=== PATIENT | female | born 1985 | race Caucasian/White ===

== ENCOUNTER → 2024-01-11 12:17 | Outpatient (REF) | payer OTHER, SELFPAY | LOC: HWWDC 12:17 | PROVIDERS: ATTENDING PHYSICIAN Nurse Practitioner Adult Health; FAMILY PHYSICIAN Internal Medicine | DX: Z12.31 Encounter for screening mammogram for malignant neoplasm of breast (principal) | CPT/HCPCS: 77063; 77067 ==

== ENCOUNTER 2024-07-04 20:10 | Inpatient (IN) | payer OTHER, SELFPAY ==
[2024-07-04 16:37] VITALS: BP 158/100
--- NOTE | 2024-07-04 16:59 | ED.GENMED ---
History of Present Illness
General
Chief Complaint: Anal/Rectal Problem
Source: patient
Time Seen by Provider: 07/04/24 16:46
History of Present Illness
History of Present Illness:
39-year-old female presenting to the ER for evaluation of pain that started around the perianal/rectal area this past Tuesday, went to urgent care where she was diagnosed with sciatica, symptoms worsened over the weekend and went to primary care
provider today where she was diagnosed with a perianal/perirectal abscess and recommended to come to the ER for further evaluation. Patient did take some Motrin earlier this morning which gave her some relief but still noting about 8 or 9 out of 10
pain presently. Denies any fevers, chills, rigors. No other symptoms. Denies any history of similar location of abscess. No known history of diabetes.
Past History
Past History
ED Past Medical History: Hypothyroidism
ED Past Surgical History: Gynecological
Social History
Tobacco: Non-smoker
Alcohol: None
Drug: None
Personal: Single
Living: with family
Employment: Employed
Family History
Family History: Other (Noncontributory)
Review of Systems
Review of Systems
All Other Systems: ROS reviewed and negative except as documented in HPI and ROS
Phy Exam
Physical Exam
Physical Exam:
GENERAL: Alert , in no apparent distress but appears very uncomfortable
HEAD: Normocephalic atraumatic
EYE: conjunctiva clear
NECK: Supple, no significant adenopathy.
ENT: o/p clr, mmm.
CARDIAC: Regular rate and rhythm
LUNGS: Clear breath sounds bilaterally, no acute respiratory distress, no wheezes/rales/rhonchi
RECTAL EXAM: Chaperoned by technical agronomist Yeimi: Moderate to large sized perianal/perirectal abscess tracking down into the perineum with small purulent discharge noted closer to the perineum. Significant tenderness to palpation.
NEUROLOGICAL: Alert and oriented
SKIN: Warm and dry, skin intact.
MUSCULOSKELETAL: well perfused.
PSYCH: Normal and appropriate interaction.
Scores
Heart Failure Risk
Heart Failure Risk Score: Not Applicable
Heart Score for Chest Pain Patients
STEMI patient?: Not applicable
Withdrawal Assessment of Alcohol
Withdrawal Assessment Completed?: Not applicable
Course
Orders/Labs/Results
Orders:
Orders
07/04/24 Breakfast
Regular
07/04/24 16:58
CT Abd/pelvis W Iv Cont Urgent
Comment:
Reason For Exam: moderate-large right perirectal/perianal abscess
Ketorolac [Toradol] 30 mg IV NOW STA
Test Result ONCE
07/04/24 17:07
Basic Metabolic Panel Urgent
Complete Blood Count/With Diff Urgent
HCG, Serum Qualitative Screen Urgent
07/04/24 17:47
Piperacillin/Tazo 3.375 Gram [Zosyn] 3.375 gram in 50 ml IV NOW
07/04/24 17:58
HYDROmorphone [Dilaudid] 0.5 mg IV NOW STA
07/04/24 18:05
0.9% Sodium Chloride 1000 ml [Nss] 2,000 ml IV NOW STA
07/04/24 18:24
Vancomycin [Vancocin] 2,000 mg 0.9% Sodium Chloride 500 ml [Nss] 500 ml IV NOW
07/04/24 18:36
Lactic Acid Q4H
Comment: CANCEL 2nd LACTIC ACID IF 1st LACTIC ACID IS LESS THAN 2
Blood Culture Q30M
PETAR Source: Blood/Venous
Specimen Description:
Blood Culture Q30M
PETAR Source: Blood/Venous
Specimen Description:
07/04/24 19:28
Admit/Transfer Patient As Directed
Co-Sign Provider:
Level of Care: Inpatient admission
Assign to:: Medical/Surgical
Physician / Group: rick
Diagnosis: abscess
Reason for Hospitalization: abscess
Expected length of stay greater than two midnights?: Yes
ELOS- Estimated Length of Stay in days: 3
I certify the patient meets the requirements for IP care: Yes
07/04/24 19:29
Consult Colorectal Surgery [ColoRectal Surgery Consult] Routine
Consulting Provider: Tariq Nevarez
Was physician already notified: Yes
07/04/24 19:30
Code Status As Directed
Resuscitation Status: Full Code
PRN Pain Medication Management As Directed
May give lesser potent ordered pain med per pt: Yes
preference::
Protocol:: Medication orders for pain may be administered in a
manner that supports deferring to patient preference
when the pt is:
- Requesting an ordered lesser potent pain medication.
Least to most potent pain medications are defined
as: acetaminophen < NSAID < tramadol < opioids
(morphine, oxycodone, hydromorphone).
- Requesting a lesser dose of the same medication IF
ORDERED.
- Requesting a less intrusive route of administration
if both routes are prescribed by the provider (PO <
IV).
07/04/24 22:00
Lactic Acid Q4H
Comment: CANCEL 2nd LACTIC ACID IF 1st LACTIC ACID IS LESS THAN 2
Abnormal Lab Results
07/04/24
17:07
WBC 20.3 H 10^3/uL
(4.8-10.8)
MCV 79.3 L fL
(81.0-99.0)
Plt Count 544 H 10^3/uL
(130-400)
Abs Immat Gran (auto) 0.1 H 10^3/uL
(0-0.05)
Absolute Neuts (auto) 16.8 H 10^3/uL
(1.4-6.5)
Absolute Monos (auto) 1.1 H 10^3/uL
(0.1-0.6)
Neutrophils % 83.0 H %
(42.2-75.2)
Lymphocytes % 10.8 L %
(20.5-51.1)
Glucose 106 H mg/dl
(70-99)
07/04/24 17:07
07/04/24 17:07
Vital Signs
Initial and Last Documented VS:
Initial Vital Signs
Temp Pulse Resp BP Pulse Ox
98.6 F 103 20 158/100 100
07/04/24 16:37 07/04/24 16:37 07/04/24 16:37 07/04/24 16:37 07/04/24 16:37
Last Documented Vital Signs
Temp Pulse Resp BP Pulse Ox
98.6 F 103 20 158/100 100
07/04/24 16:37 07/04/24 16:37 07/04/24 16:37 07/04/24 16:37 07/04/24 16:37
MDM/Problems Addressed
Differential Diagnosis Includes:
Perianal/perineal abscess, Sandra's, hemorrhoid, anal fissure
MDM/Problems Addressed:
39-year-old female presenting to the ER for evaluation of rectal pain/perianal pain that began Tuesday, worsened throughout the weekend, today diagnosed by primary care provider with a perianal abscess. Exam does reveal quite a large abscess to the
perianal/perineal region. Given the patient's degree of pain combined with location will obtain CT scan to evaluate depth of abscess. May need admission for colorectal surgery evaluation and potential for incision and drainage within the OR.
*Radiology
Radiology exam reviewed: radiology read reviewed (Perianal abscess)
*Pulse Oximetry
Patient hypoxic: no
*Critical Care Note
Total Time (30-74mins, 75-104mins- exclusive of procedures): Not Applicable
Comment
Comment:
Patient has a white blood cell count of over 20,000 combined with a pulse rate of 103 makes her meet SIRS criteria with suspected infection of a perirectal abscess patient does meet sepsis criteria. Lactic acid and blood cultures ordered. Will
order sepsis fluids. Antibiotics ordered. Anticipated admission.
Patient Management
Discussion with other providers: Hospitalist and Demonstrator Sewing Techniques
Escalation/DeEscalation of care consider admission/obs:
Due to patient's inability to tolerate bedside incision and drainage will plan for admission for colorectal surgery evaluation morning. Antibiotics ordered. Hospitalist team to admit.
ED Attending Note
-
Portions of this chart may have been created with voice recognition software.� Occasional wrong word or��sound alike� substitutions may have occurred due to the inherent limitations of voice recognition software.
Discharge Plan
Departure
Patient Disposition: Admit
Date of Disposition: 07/04/24
Time of Disposition: 19:11
Presentation/result/management discussed w/ accepting MD/DO: Hospitalist
Discharge Problem:
Perirectal abscess
Interventions
Interventions:
*Risk Screen - Suicide Last Done: 07/04/24 16:37
*Neglect/Abuse Screening Last Done: 07/04/24 16:37
*ED COVID-19 Vaccine History Last Done: 07/04/24 16:37
ED-Skin Assessment Last Done: 07/04/24 16:49
[2024-07-04] MEDS: TORADOL 30 MG IV (17:11)
[2024-07-04 17:44] LABS: % Basophils 0.2 % (0-2); % Immature Granulocytes 0.4 % (0-0.5); % Lymphocytes 10.8 % (20.5-51.1); % Monocytes 5.6 % (1.7-9.3); Absolute Basophils 0.1 10^3/uL (0-0.2); Absolute Immature Granulocytes 0.1 10^3/uL (0-0.05); Absolute Lymphocytes 2.2 10^3/uL (1.2-3.4); Absolute Monocytes 1.1 10^3/uL (0.1-0.6); Absolute Neutrophils 16.8 10^3/uL (1.4-6.5); Hematocrit 38.4 % (37.0-47.0); Hemoglobin 13.1 g/dL (12.0-16.0); Mean Corp Hgb Conc. 34.1 g/dL (33.0-37.0); Mean Corpuscular Hgb 27.1 pg (27.0-31.0); Mean Corpuscular Volume 79.3 fL (81.0-99.0); Mean Platelet Volume 9.7 fL (7.4-10.4); Nucleated Red Blood Cells % 0 %; Platelet Count 544 10^3/uL (130-400); Red Blood Cell Count 4.84 10^6/uL (4.20-5.40); Red Cell Dist. Width 13.8 % (11.5-14.5); White Blood Cell Count 20.3 10^3/uL (4.8-10.8)
[2024-07-04 18:01] VITALS: BMI 43.3
[2024-07-04 18:01] LABS: Blood Urea Nitrogen 14 mg/dl (7-17); Calcium 9.6 mg/dl (8.4-10.2); Carbon Dioxide 22 mmol/L (22-30); Chloride 104 mmol/L (98-107); Glucose 106 mg/dl (70-99); HCG, Serum Qualitative Screen Negative; Sodium 137 mmol/L (135-145); eGFR > 60.00
[2024-07-04] MEDS: DILAUDID 0.5 MG IV (18:02)
[2024-07-04] MEDS: NSS 2000 ML IV (18:47)
[2024-07-04] MEDS: VANCOCIN 540 MG IV (18:48)
[2024-07-04] MEDS: ZOSYN 50 IV (18:49)
--- NOTE | 2024-07-04 19:12 | HPS.HSE ---
Family Physician
-
Family Physician: Neela Pleitez DO
Chief Complaint
-
rectal abscess
History of Present Illness
39-year-old female presenting to the ER for evaluation of pain that started around the perianal/rectal area this past Tuesday, went to urgent care where she was diagnosed with sciatica, symptoms worsened over the weekend and went to primary care
provider today where she was diagnosed with a perianal/perirectal abscess and recommended to come to the ER for further evaluation. patient stated chills yesterday. she was noted pale yesterday. patient stated she has push to void and move her
bowels. denied FRIAS but felt very dizzy couples times yesterday. denied congestion and cough.denied chest pain,sob. denied abdominal pain,n,v,d. denied dysuria or hematuria.
patient received iv zosyn and vanco in ER for rectal abscess. CT with with perianal collection, compatible with the given clinical history of perianal abscess. There is no evidence for extension above the levator ani, with no evidence for
significant perirectal collection.
admitting for further management.
Medical History
Past Medical History
Past Medical History: Reports Other
Additional Past Medical History:
hypothyroidism
autoimmune thyroiditis
Past Surgical History: Reports Other
Additional Past Surgical History:
ovarian cystectomy
Social History
Tobacco: Non-smoker
Alcohol: None
Drug: None
Family History
Family History: Not pertinent
Allergies / Home Medications
Allergies reflects when Allergies were last updated in [facility].
Home Medications with original date entered in [facility]
Allergy/Medication List:
Allergies
Allergy/AdvReac Type Severity Reaction Status Date / Time
No Known Allergies Allergy Verified 07/04/24 16:44
Home Medications
etonogestrel 0.12 mg-ethinyl estradiol 0.015 mg/24 hr vaginal ring (EluRyng) 1 vag ring vaginal Q4W 07/04/24
gabapentin 300 mg capsule 300 mg PO BIDPRN PRN moderate pain 07/04/24
ibuprofen 800 mg tablet 800 mg PO BIDPRN PRN moderate pain 07/04/24
levothyroxine 25 mcg tablet 12.5 mcg PO DAILY 07/04/24
levothyroxine 50 mcg tablet 50 mcg PO DAILY 07/04/24
pseudoephedrine HCl 30 mg tablet (Sudafed) 30 mg PO DAILYPRN PRN congestion 07/04/24
tirzepatide (weight loss) 7.5 mg/0.5 mL subcutaneous pen injector (Zepbound) 7.5 mg SC FR 07/04/24
tizanidine 4 mg tablet 4 mg PO HSPRN PRN spasms 07/04/24
Review of Systems
-
Constitutional: Reports No Symptoms
EENT: Reports No Symptoms
Respiratory: Reports No Symptoms
Cardiac: Reports No Symptoms
Abdomen/GI: Reports Other (victoria anal pain)
: Reports No Symptoms
Musculoskeletal: Reports No Symptoms
Skin: Reports No Symptoms
Neurological: Reports No Symptoms
Endocrine: Reports No Symptoms
Hematologic/Lymphatic: Reports No Symptoms
Psych: Reports No Symptoms
Physical Exam
Vital Signs
Vital Signs
Temp Pulse Resp BP Pulse Ox
98.6 F 103 20 158/100 100
07/04/24 16:37 07/04/24 16:37 07/04/24 16:37 07/04/24 16:37 07/04/24 16:37
Physical Exam
General: Well Developed, Well Nourished and No Apparent Distress
HEENT: NormoCephalic, Moist mucous membranes and Atraumatic
Respiratory: Clear
Cardiac: S1/S2 and Regular Rhythm; No Murmur or Rub
GI: Soft, Non Tender, Non Distended, Normal Bowel Sounds and Other (Moderate to large sized perianal/perirectal abscess tracking down into the perineum); No Organomegaly
Rectal: Deferred by Provider
Musculoskeletal: No Clubbing, No Cyanosis and No Edema
Skin: No Rash
Neuro: AO x 3 and Nonfocal/grossly intact
Psych: Calm
Laboratory Results
-
07/04/24 17:07
07/04/24 17:07
Data Reviewed
-
CT Scan: Report Reviewed by me
Lab Data: Labs Reviewed by me
Impression/Plan
-
#perirectal abscess
-wbc >20
- Zosyn continued
-CT abdomen pelvis with there is a perianal collection, compatible with the given clinical history of perianal abscess. There is no evidence for extension above the levator ani, with no evidence for significant perirectal collection.
-Blood culture sent from ER
-Colorectal consult for possible I&D tomorrow
-Dilaudid prn for pain
#thrombocytosis likely from acute infection
-platelet 544
-ctm
# Hypothyroidism
-Levothyroxine continued
# DVT prophylaxis
-SCDs
#CODE STATUS
-Full code
--- NOTE | 2024-07-04 19:29 | W.PN.UPDATE ---
Update Note
Progress Note Update
Patient seen in conjunction with ABDULLAHI. I agree the findings on history physical. I concur with the assessment and plan unless stated otherwise.
Patient Is a 39-year-old female with past medical history significant for hypothyroid, obesity, chronic back pain presenting to the emergency department with perirectal and lower extremity pain. She reports onset of pain on last week after
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 The following day she started having pain which she thought was probably back pain. She denies any other findings. She denies fevers or chills. She denies any swelling or redness. On
Tuesday she saw urgent care who diagnosed her with sciatica and given analgesics. She had no improvement. She followed up with her PMD today who examined her and found a perianal abscess. She could not see outpatient: Today so she was sent to the
emergency department.
Patient has not been on any antibiotics recently. Her last hospitalization was over 10 years ago. She takes telopeptide for weight loss and has no history of diabetes. She is not immunocompromised. She works with animals at a veterinary clinic.
In the emergency department she was afebrile, blood pressure was 158/100 with a pulse of 1 3, she was satting 100% on room air. She had a leukocytosis to 20.3, CBC otherwise unremarkable. Electrolytes BUN/creatinine are within normal limits.
Lactic acid acid pending. CT of the abdomen pelvis shows a perianal abscess no extension above the levator ani, no perirectal abscess.
Assessment and plan
Perianal abscess without extension above the annual perirectal abscess. Minimal external cellulitis. Pain currently well-controlled. She does have leukocytosis and lactic acid is pending but does not appear septic at this time.
- admit to med/surg
- blood cultures sent
- mrsa swab
- minimal risk factors for resistant bacteria, will continue zosyn for now
- pain control and iv fluids
- npo after midnight
- colorectal surgery (Dr. Virgil Nevarez) aware and consulted
DVT PPX - lovenox sq
Code status - Full Code
[2024-07-04 19:32] LABS: Lactic Acid 1.5 mmol/L (0.7-2.0)
[2024-07-04] MEDS: DILAUDID 1 MG IV (22:43)
[2024-07-04 23:20] VITALS: BP 120/69; BMI 41.1
[2024-07-05] VITALS (11 sets, daily range): BP systolic 104–140; BP diastolic 64–76
[2024-07-05] MEDS: ZOSYN 100 IV ×4 (02:56→19:58)
[2024-07-05] MEDS: DILAUDID 1 MG IV ×3 (02:56→14:25)
[2024-07-05] MEDS: SYNTHROID 12.5 MCG PO (05:16)
[2024-07-05] MEDS: SYNTHROID 50 MCG PO (05:16)
[2024-07-05 08:03] LABS: Hematocrit 37.2 % (37.0-47.0); Hemoglobin 12.5 g/dL (12.0-16.0); Mean Corp Hgb Conc. 33.6 g/dL (33.0-37.0); Mean Corpuscular Hgb 27.1 pg (27.0-31.0); Mean Corpuscular Volume 80.5 fL (81.0-99.0); Platelet Count 464 10^3/uL (130-400); Red Blood Cell Count 4.62 10^6/uL (4.20-5.40); Red Cell Dist. Width 14.3 % (11.5-14.5); White Blood Cell Count 18.7 10^3/uL (4.8-10.8)
--- NOTE | 2024-07-05 09:13 | W.PN.HOSP.TC ---
Today's Communication/Plan
-
Await OR
Continue antibiotics
Assessment / Plan
Assessment / Plan
Gen-AAOx3, NAD, morbid obesity
HEENT-NC, AT, anicteric, clear oral mm
Neck-supple
CV-reg, no M, +S1/S2
Lungs-clear B/L
Abd-soft, NT, ND
Ext-no edema
Musculoskeletal-no cyanosis, clubbing
Skin-warm and dry
Neuro-grossly non-focal
Psych-calm, cooperative
Perianal abscess -without sepsis. CT abdomen/pelvis noted. No perirectal extension. Currently on IV Zosyn. WBC count coming down. Afebrile. Awaiting drainage in the OR today. Colorectal surgery consulted. Currently NPO. Continue analgesics.
Hypothyroidism - continue Synthroid.
Morbid obesity due to excess calories -she is losing weight on tirzepatide.
Full code
Anticipated Discharge: Within 24 hours
Subjective/Interval History
-
Date of Service: July 05, 2024
Patient seen and examined. Complaining of rectal pain. Looks relatively comfortable.
Objective Data
-
Labs:
Laboratory Results
07/05/24
07:11
WBC 18.7 H
Hgb 12.5
Hct 37.2
Plt Count 464 H
Vital Signs:
Vital Signs
Temp Pulse Resp BP Pulse Ox
98.5 F 81 20 119/71 97
07/05/24 07:20 07/05/24 07:20 07/05/24 07:20 07/05/24 07:20 07/05/24 07:20
I&O
07/04/24 07/05/24 07/06/24
06:59 06:59 06:59
Intake Total 0 / 0
Balance 0 / 0
Review of Systems
-
History Source: Patient
All other systems: Reviewed and negative
--- NOTE | 2024-07-05 10:18 | CON.CRS ---
Consultation
-
Date/Time Consultation Requested: 07/04/2024, 19:29
Date/Time Consultation Performed: 07/05/24, 09:30
Requesting Provider: Elizabeth Mendez
Performing Provider: Virgil Nevarez MD
Reason for Consultation: perianal abscess
Medical History
-
Chief Complaint: anal pain
History of Present Illness:
39-year-old female presents to [facility] ER complaining of anal and rectal pain. She had apparently had this pain since about 6 days ago. She went to the urgent care she was diagnosed with sciatica. Her symptoms worsened over the weekend
and she went to her primary care provider yesterday who diagnosed her with a perianal abscess. Her primary care physician recommended she go to the ER. In the ER her WBC was 20.3. Vital signs were normal. CT of the abdomen and pelvis showed a
perianal collection measuring 6.3 x 2.1 inferiorly and 4.7 x 4.5 cm superiorly. She was started on vancomycin and Zosyn. She is in a severe amount of pain at bedside. Given these findings, we have been consulted for further surgical planning.
Past Medical History
Past Medical History: Other (hypothyroidism, autoimmune thyroiditis)
Past Surgical History: Other (ovarian cystectomy)
Social History
Tobacco: Non-Smoker
Alcohol: None
Drug: None
Family History
Family History: Reviewed & Not Pertinent
Allergies / Home Medications
Allergy/AdvReac Type Severity Reaction Status Date / Time
No Known Allergies Allergy Verified 07/04/24 16:44
�Medication �Instructions �Recorded �Confirmed �Type
etonogestrel 0.12 mg-ethinyl 1 vag ring vaginal Q4W Hormonal 07/04/24 07/04/24 History
estradiol 0.015 mg/24 hr vaginal Agent
ring (EluRyng)
gabapentin 300 mg capsule 300 mg PO BIDPRN PRN moderate pain 07/04/24 07/04/24 History
ibuprofen 800 mg tablet 800 mg PO BIDPRN PRN moderate pain 07/04/24 07/04/24 History
levothyroxine 25 mcg tablet 12.5 mcg PO DAILY Thyroid 07/04/24 07/04/24 History
levothyroxine 50 mcg tablet 50 mcg PO DAILY Thyroid 07/04/24 07/04/24 History
pseudoephedrine HCl 30 mg tablet 30 mg PO DAILYPRN PRN congestion 07/04/24 07/04/24 History
(Sudafed)
tirzepatide (weight loss) 7.5 7.5 mg SC FR Weight loss 07/04/24 07/04/24 History
mg/0.5 mL subcutaneous pen
injector (Zepbound)
tizanidine 4 mg tablet 4 mg PO HSPRN PRN spasms 07/04/24 07/04/24 History
Review of Systems
-
History Source: Patient
: Other (rectal pain)
A 10 point review of systems was completed, and was negative except as per HPI.
Physical Exam
Vital Signs
Temp 98.5 F 07/05/24 07:20
Pulse 81 07/05/24 07:20
Resp Rate 20 07/05/24 07:20
Blood pressure 119/71 07/05/24 07:20
SaO2 97 07/05/24 07:20
07/04/24 07/05/24 07/06/24
06:59 06:59 06:59
Actual Weight 126.297 kg
Body Mass Index (BMI) 41.1
Lab Results / Allergies
07/05/24 07:11
07/04/24 17:07
WBC 18.7 10^3/uL (4.8-10.8) H 07/05/24 07:11
Hgb 12.5 g/dL (12.0-16.0) 07/05/24 07:11
Hct 37.2 % (37.0-47.0) 07/05/24 07:11
Plt Count 464 10^3/uL (130-400) H 07/05/24 07:11
Abs Immat Gran (auto) 0.1 10^3/uL (0-0.05) H 07/04/24 17:07
Neutrophils % 83.0 % (42.2-75.2) H 07/04/24 17:07
Allergy/AdvReac Type Severity Reaction Status Date / Time
No Known Allergies Allergy Verified 07/04/24 16:44
Physical Exam
General: Well Developed, Well Nourished and No Apparent Distress
Rectal: Other (unable to perform JASMINE due to pain. Fluctuance and severe tenderness on left side of anus, moderate tenderness on right)
Data Reviewed
-
CT Scan: Image Personally Visualized and interpreted, Report Reviewed by me and Discussed with Patient
Labs: Labs Reviewed by me, Discussed with Physician and Discussed with Patient
Old Records: Requested
Assessment / Plan
-
Assessment: 39-year-old female presents to [facility] complaining of rectal pain and found to have a perianal abscess
Plan:
-Remain n.p.o.
-Continue IV antibiotics
-Pain medication: increased Dilaudid to 1mg q3h. Added Toradol 15mg q6 PRN.
-On the schedule for OR today for an I+D
[2024-07-05] MEDS: FLUSH (NSS) 2 FLUSH IV ×2 (10:46→14:26)
[2024-07-05] MEDS: TORADOL 15 MG IV (10:46)
--- NOTE | 2024-07-05 14:16 | CM ---
Patient seen at bedside
IA completed
Dx: abscess
OR today
Lives with her dad in a 2 story home, 5 steps to enter, flight to second floor
PLOF: independent, no device
Denies DME
Denies HH/Rehab
PCP: Neela Pleitez
Pharmacy: [address], [place]
PLAN: home, currently no needs
--- NOTE | 2024-07-05 17:55 | W.PN.UPDATE ---
Update Note
Progress Note Update
I am available to perform the surgery. I did review the notes and the CT scan. I did discuss the situation with the patient in detail. I reiterated risks and benefits of perianal/perirectal abscess incision and drainage. I reemphasized the
potential for drains, the potential for further surgeries, and the potential for fistula formation. She is agreeable to proceed.
--- NOTE | 2024-07-05 19:32 | W.IMMPOSTOP ---
Surgical Immed Post Op Note
-
Primary Surgeon: Kimberly Mcleod MD
Assisting Surgeon: none
Pre-op Diagnosis: perianal/perirectal abscess
Post-op Diagnosis: same
Procedure Performed: incision and drainage perirectal with placement of drains
Anesthesia Type: general plus local
Specimen / Cultures: abscess cultures
Estimated Blood Loss: 10 cc
Complications: no immediate
Operative Findings: perirectal abscess in R anterior position with fistulization to anterior midline dentate (?horseshoe)
Dressed with dry dressings and tape.
Will send back to med surg.
Resume diet.
--- NOTE | 2024-07-05 22:00 | PTCARENOTE ---
Pt returned from PACU. aaox3, 97% on room air, ate dinnner w/ out issue. pt dressing is c/d/i. pt reoiented to room w/ call pederson in reach.
[2024-07-06] MEDS: ZOSYN 100 IV ×2 (02:48→08:23)
[2024-07-06 02:55] VITALS: BP 126/68
[2024-07-06] MEDS: SYNTHROID 12.5 MCG PO (06:01)
[2024-07-06] MEDS: SYNTHROID 50 MCG PO (06:01)
--- NOTE | 2024-07-06 06:45 | PTCARENOTE ---
large amount of drainage this am. dressing cleanse w/ nss and new abd and tape.
[2024-07-06 07:10] LABS: Hemoglobin 12.6 g/dL (12.0-16.0); Mean Corp Hgb Conc. 34.1 g/dL (33.0-37.0); Mean Corpuscular Hgb 26.9 pg (27.0-31.0); Mean Corpuscular Volume 79.1 fL (81.0-99.0); Mean Platelet Volume 9.7 fL (7.4-10.4); Platelet Count 524 10^3/uL (130-400); Red Blood Cell Count 4.68 10^6/uL (4.20-5.40); Red Cell Dist. Width 14.1 % (11.5-14.5); White Blood Cell Count 23.8 10^3/uL (4.8-10.8)
[2024-07-06 07:15] VITALS: BP 146/83
[2024-07-06] MEDS: FLUSH (NSS) 1 FLUSH IV (08:23)
--- NOTE | 2024-07-06 09:37 | W.PN.CRS1 ---
Today's Communication / Plan
-
wound care
abx
okay for d/c from our perspective
maintain drains and follow up in 2-3 weeks
Assessment/Plan
-
POD#1 incision and drainage perirectal with placement of drains
WBC 23.8 (18.7), vitals normal
-Wound care daily - dressing changes and sitz baths
-OOB as tolerated
-Continue regular diet
-Discussed discharge with patient vs staying another night, she wishes to be discharged. Will discharge with 10 day course of Augmentin. Wound care discussed with patient. Follow up in the office with Dr. Mcleod in 2-3 weeks.
Subjective Data
Procedure
07/05/2024- incision and drainage perirectal with placement of drains
Subjective Data
Date of Service: July 06, 2024
Patient states she feels much improved. She is tolerating a diet. She has no further pain, just pressure. She denies nausea or vomiting.
Objective Data
-
Vital Signs
Temp Pulse Resp BP Pulse Ox
98.5 F 68 22 146/83 96
07/06/24 07:15 07/06/24 07:15 07/06/24 07:15 07/06/24 07:15 07/06/24 07:15
Intake & Output
07/05/24 07/06/24 07/07/24
06:59 06:59 06:59
Intake Total 0 / 0 780 / 780
Output Total 400 / 400
Balance 0 / 0 380 / 380
Intake:
Oral fluids 0 / 0 480 / 480
IV piggybacks 300 / 300
Output:
Urine, Voided 400 / 400
Other:
Number of approximated MODERATE 1 2
amounts of urine
Lab Results
07/06/24 06:35
07/04/24 17:07
Physical Exam
-
General: No Acute Distress and AOx3
Abdomen: Soft, Non Distended and Non Tender
Rectal: Other (drains in place, wound with no active bleeding, no erythema noted, dressing replaced)
--- NOTE | 2024-07-06 11:31 | W.PN.HOSP.TC ---
Today's Communication/Plan
-
Discharge
Assessment / Plan
Assessment / Plan
Gen-AAOx3, NAD, morbid obesity
HEENT-NC, AT, anicteric, clear oral mm
Neck-supple
CV-reg, no M, +S1/S2
Lungs-clear B/L
Abd-soft, NT, ND
Ext-no edema
Musculoskeletal-no cyanosis, clubbing
Skin-warm and dry
Neuro-grossly non-focal
Psych-calm, cooperative
Perianal abscess -without sepsis. CT abdomen/pelvis noted. Stable after incision and drainage of abscess with placement of drains, 07/05. Colorectal surgery okay with discharge today with drains in place. Discharge on Augmentin. Outpatient
follow-up. Patient declined visiting nursing.
Hypothyroidism - continue Synthroid.
Morbid obesity due to excess calories -she is losing weight on tirzepatide.
Full code
Dispo -medically stable for discharge today. Outpatient follow-up.
32 minutes spent in discharge process.
Anticipated Discharge: Today
Subjective/Interval History
-
Date of Service: July 06, 2024
Patient seen and examined. Feeling much better. No complaints. Wants to go home today.
Objective Data
-
Labs:
Laboratory Results
07/06/24
06:35
WBC 23.8 H
Hgb 12.6
Hct 37.0
Plt Count 524 H
Vital Signs:
Vital Signs
Temp Pulse Resp BP Pulse Ox
98.5 F 68 22 146/83 95
07/06/24 07:15 07/06/24 07:15 07/06/24 07:15 07/06/24 07:15 07/06/24 10:00
I&O
07/05/24 07/06/24 07/07/24
06:59 06:59 06:59
Intake Total 0 / 0 780 / 780
Output Total 400 / 400
Balance 0 / 0 380 / 380
Review of Systems
-
History Source: Patient
All other systems: Reviewed and negative
--- NOTE | 2024-07-06 11:34 | W.DS.TRANS ---
DC Summary - Tool Crib Attendant
-
Discharge Instructions:
Discharge Diagnosis/Procedures Perianal abscess
Diet Regular
Activity No strenuous activity
Driving Restrictions As prior to admission
Bathing Restrictions None
Wound Care Wear a pad or gauze in your underwear to protect
clothing. Continue drains, will discuss plan at
your appointment with Dr. Mcleod. Sitz baths
twice a day, warm water, for 10 minutes at a
time. Saline spray to area to clean. Stool
softener as needed.
Instructions: How to take a sitz bath
Stand-Alone Forms:
Changes to Home Medications: No
Discharge Medications:
DC Medications w/original date entered in [facility]
etonogestrel 0.12 mg-ethinyl estradiol 0.015 mg/24 hr vaginal ring (EluRyng) 1 vag ring vaginal Q4W Hormonal Agent 07/04/24
gabapentin 300 mg capsule 300 mg PO BIDPRN PRN moderate pain 07/04/24
ibuprofen 800 mg tablet 800 mg PO BIDPRN PRN moderate pain 07/04/24
levothyroxine 25 mcg tablet 12.5 mcg PO DAILY Thyroid 07/04/24
levothyroxine 50 mcg tablet 50 mcg PO DAILY Thyroid 07/04/24
pseudoephedrine HCl 30 mg tablet (Sudafed) 30 mg PO DAILYPRN PRN congestion 07/04/24
tirzepatide (weight loss) 7.5 mg/0.5 mL subcutaneous pen injector (Zepbound) 7.5 mg SC FR Weight loss 07/04/24
tizanidine 4 mg tablet 4 mg PO HSPRN PRN spasms 07/04/24
amoxicillin 875 mg-potassium clavulanate 125 mg tablet 1 tab PO Q12H 10 days #20 tabs 07/06/24
tramadol 50 mg tablet 50 mg PO Q6H PRN Pain #20 tabs 07/06/24
Home Medication Changes
Pending Results: No
--- NOTE | 2024-07-06 11:44 | CM ---
CM met with patient; she reported that she is driving self home
Plan: discharge to home; no services needed
[2024-07-06 11:45] VITALS: BP 134/81
== END 2024-07-06 13:20 | disposition home or self-care (01) | DRG 345 ==
LOC: 4 EAST ACU 20:10
PROVIDERS: Physician Assistant Medical; Registered Nurse; Surgery; ADMITTING PHYSICIAN Internal Medicine; ATTENDING PHYSICIAN Hospitalist; CONSULT PHYSICIAN Surgery; EMERGENCY PHYSICIAN Emergency Medicine; FAMILY PHYSICIAN Internal Medicine
PROC: 0D9P0ZZ Drainage of Rectum, Open Approach (ICD-10-PCS; 2024-07-06)
DX: K61.1 Rectal abscess (principal); Z68.41 Body mass index [BMI] 40.0-44.9, adult; D75.839 Thrombocytosis, unspecified; M54.30 Sciatica, unspecified side; E66.01 Morbid (severe) obesity due to excess calories; K62.89 Other specified diseases of anus and rectum; E03.9 Hypothyroidism, unspecified
CPT/HCPCS: 74177; 80048; 83605; 84703; 85025; 85027; 87015; 87040; 87070; 87077; 87186; 87205; 96365; 96366; 96367; 96375; 99284; Q9967

== ENCOUNTER 2025-03-20 06:27 | Day surgery (SDC) | payer OTHER, SELFPAY ==
[2025-03-06 13:40] VITALS: BMI 38.5
[2025-03-20] VITALS (9 sets, daily range): BP systolic 125–145; BP diastolic 83–91; BMI 38.5
[2025-03-20] MEDS: NORMOSOL-R/PLASMALYTE-A 1000 IV (13:59)
[2025-03-20] MEDS: DILAUDID 0.25 MG IV (17:20)
== END 2025-03-20 18:44 | disposition home or self-care (01) ==
LOC: SDS 06:27
PROVIDERS: ATTENDING PHYSICIAN Surgery; FAMILY PHYSICIAN Internal Medicine
DX: K60.30 Anal fistula, unspecified (principal)
CPT/HCPCS: 46280; 93005